=== PATIENT | female | born 1970 | race Caucasian/White ===

== ENCOUNTER 2020-12-17 12:29 | Day surgery (SDC) | payer BC ==
[2020-12-17] MEDS ORDERED: Hyoscyamine 0.125 MG Tab.SL SL ONE ×3 (13:07→14:42)
--- NOTE | 2020-12-17 13:07 | EDM.PDOC ---
ED HPI GENERAL MEDICAL PROBLEM - General Chief Complaint: ENT Problem Stated Complaint: DIFFICULTY SWALLOWING Time Seen by Provider: 12/17/20 12:50 Source of Information: Reports: Patient History Limitations: Reports: No Limitations - History of Present Illness INITIAL COMMENTS - FREE TEXT/NARRATIVE: 50-year-old female presents to the ED essentially unable to swallow. She repo rts since about 8:00 last evening after taking a first sip of beer it came back up with intense spasm of her upper esophagus with a bit of air. She reports she had a milder case that lasted 5 to 10 minutes on Saturday last week. She otherwise has had similar type problems perhaps 2 years ago. She does not believe that any pill got stuck in her esophagus to cause pill esophagitis. She has been spitting up her saliva ever since last evening. She is seen at the walk-in clinic by Kesha Perez and had a work-up including a CT of the neck with soft tissue evaluation with no positive findings. In the ED patient continues to spit up saliva every 5 minutes. She rarely experiences any heartburn or GERD. Current medications she is taking for many years. No recent use of Benadryl to help sleep. No other anticholinergic medications either. She does to sunflower seeds when she works outside and has been using them a lot the last few days. 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 No known exposure to herbicides or pesticides. Onset: Sudden Onset Date: 12/17/20 Onset Time: 20:00 Duration: Hour(s):, Constant (Unable to swallowing her own saliva.) Location: Reports: Neck (Feels pain at the suprasternal notch of her neck with regurgitation of any fluids that she attempts to swallow such as water.) Quality: Reports: Other (Unable to swallow her saliva or any fluid since last evening.) Severity: Severe Improves with: Reports: None Worsens with: Reports: None Context: Denies: Activity, Exercise, Lifting, Sick Contact, Trauma, Other Associated Symptoms: Reports: Other (Regurgitation of saliva. She is actually quite hungry but of course unable to eat.). 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 12/17/20 [Rx] Sucralfate [Carafate] 1 gm PO Q6HR PRN 30 Days #120 tab 12/17/20 [Rx] buPROPion HCL [Wellbutrin Xl] 300 mg PO DAILY 12/17/20 [History] Past Medical History - Past Health History Medical/Surgical History: Denies Medical/Surgical History Psychiatric History: Reports: ADHD, Depression (Currently on Wellbutrin.) - Infectious Disease History Infectious Disease History: Reports: Novel Coronavirus Other Infectious Disease History: Patient did have COVID-19 illness in March last year. She has not been able to smell since that time. Social & Family History - Tobacco Use Tobacco Use Status *Q: Never Tobacco User - Alcohol Use Number of Drinks Per Day: 2 - Recreational Drug Use Recreational Drug Use: No - Living Situation & Occupation Occupation: Employed ED ROS ENT - Review of Systems Review Of Systems: See Below Constitutional: Reports: Fatigue (Not being able to sleep most of the night due to spitting up/saliva.). Denies: Fever, Chills, Malaise, Weakness HEENT: Reports: Other (Unable to swallow her own saliva since last evening.) Respiratory: Reports: No Symptoms Cardiovascular: Reports: No Symptoms Endocrine: Reports: No Symptoms GI/Abdominal: Reports: No Symptoms : Reports: No Symptoms Musculoskeletal: Reports: No Symptoms Skin: Reports: No Symptoms Neurological: Reports: No Symptoms Psychiatric: Reports: Depression (History of attention deficit disorder with hyperactivity.), Other Hematologic/Lymphatic: Reports: No Symptoms Immunologic: Reports: No Symptoms ED EXAM, ENT - Physical Exam Exam: See Below Exam Limited By: No Limitations General Appearance: Alert, WD/WN, Mild Distress, Other (Continues to spit up her own saliva into a water bottle every 3 to 5 minutes. Temperature is 36.7. Heart rate 78 in sinus respiratory to 16 with O2 sats of 99% room air BP mildly elevated 167/69.) Eye Exam: Bilateral Eye: Normal Inspection (No blepharal pallor or scleral icterus.) Mouth/Throat: Normal Inspection, Normal Gums, Normal Lips, Normal Teeth, Other Head: Atraumatic (Tonsils are absent.), Normocephalic Neck: Normal Inspection, Supple, Non-Tender, Full Range of Motion. No: Lymphadenopathy (L), Lymphadenopathy (R) Respiratory/Chest: No Respiratory Distress, Lungs Clear, Normal Breath Sounds, No Accessory Muscle Use Cardiovascular: Normal Peripheral Pulses, Regular Rate, Rhythm, No Edema, No Gallop, No Murmur, No Rub GI/Abdominal: Normal Bowel Sounds, Soft, Non-Tender, No Organomegaly, No Mass, Pelvis Stable. No: Guarding, Rigid, Rebound Back: Normal Inspection, Full Range of Motion. No: CVA Tenderness (L), CVA Tenderness (R) Extremities: Normal Inspection, Normal Range of Motion, Non-Tender, No Pedal Edema Neurological: Alert, Oriented, CN II-XII Intact, Normal Cognition Psychiatric: Normal Affect, Normal Mood Skin: Warm, Dry, Intact, Normal Color, No Rash, Other (Or face and white mess around both eyes as she wears safety goggles for work.) Course - Vital Signs Last Recorded V/S: Last Vital Signs Temp 37.0 C 12/17/20 17:45 Pulse 60 12/17/20 17:45 Resp 13 12/17/20 17:45 BP 147/80 H 12/17/20 17:45 Pulse Ox 96 12/17/20 17:45 - Orders/Labs/Meds Orders: Active Orders 24 hr Category Date Time Status Patient Status [ADT] Routine ADT 12/17/20 15:17 Active Schedule Procedure [COMM] Stat Oth 12/17/20 15:18 Ordered Labs: Laboratory Tests 12/17/20 Range/Units 13:02 SARS-CoV-2 RNA (CURTIS) Negative (NEGATIVE) Meds: Medications Discontinued Medications Generic Name Dose Route Start Last Admin Trade Name Freq PRN Reason Stop Dose Admin Dexamethasone Confirm 12/17/20 15:44 Dexamethasone 4 Mg/Ml Sdv Administered 12/17/20 15:45 Dose 8 mg .ROUTE .STK-MED ONE Diphenhydramine HCl 25 mg 12/17/20 16:19 Diphenhydramine 50 Mg/Ml Sdv IVPUSH Q6H PRN pruritis Fentanyl Confirm 12/17/20 15:45 Fentanyl 100 Mcg/2 Ml Sdv Administered 12/17/20 15:46 Dose 100 mcg .ROUTE .STK-MED ONE Fentanyl 50 mcg 12/17/20 16:19 Fentanyl 100 Mcg/2 Ml Sdv IVPUSH Q20M PRN Pain Glucagon 1 mg 12/17/20 13:11 12/17/20 13:18 Glucagon,Human Recombinant 1 Mg Vial IVPUSH 12/17/20 13:12 1 mg ONETIME ONE Administration Glycopyrrolate Confirm 12/17/20 16:07 Glycopyrrolate 0.2 Mg/Ml 2 Ml Syringe Administered 12/17/20 16:08 Dose 0.4 mg .ROUTE .STK-MED ONE Hydromorphone HCl 0.5 mg 12/17/20 13:10 12/17/20 13:17 Hydromorphone 0.5 Mg/0.5 Ml Syringe IVPUSH 12/17/20 13:11 0.5 mg ONETIME ONE Administration Hydromorphone HCl 0.5 mg 12/17/20 16:19 Hydromorphone 0.5 Mg/0.5 Ml Syringe IVPUSH Q10M PRN Pain (severe 7-10) Hyoscyamine 0.125 mg 12/17/20 13:07 12/17/20 13:14 Hyoscyamine 0.[address] 12/17/20 13:08 0.125 mg ONETIME ONE Administration Hyoscyamine 0.125 mg 12/17/20 13:48 12/17/20 13:51 Hyoscyamine 0.[address] 12/17/20 13:49 0.125 mg ONETIME ONE Administration Hyoscyamine 0.125 mg 12/17/20 14:42 12/17/20 14:47 Hyoscyamine 0.[address] 12/17/20 14:43 0.125 mg ONETIME ONE Administration Dextrose/Lactated Ringer's 1,000 mls @ 150 mls/hr 12/17/20 13:15 12/17/20 13:14 Dextrose 5%-Lactated Ringers IV 150 mls/hr ASDIRECTED MOIZ Administration Lidocaine HCl Confirm 12/17/20 15:44 Xylocaine-Mpf 1% Administered 12/17/20 15:45 Dose 4 mls @ as directed .ROUTE .STK-MED ONE Lactated Ringer's Confirm 12/17/20 15:44 Ringers, Lactated Administered 12/17/20 15:45 Dose 1,000 mls @ as directed .ROUTE .STK-MED ONE Metoclopramide HCl 5 mg 12/17/20 13:11 12/17/20 13:26 Metoclopramide 10 Mg/2 Ml Sdv IVPUSH 12/17/20 13:12 5 mg ONETIME ONE Administration Ondansetron HCl Confirm 12/17/20 15:44 Ondansetron 4 Mg/2 Ml Sdv Administered 12/17/20 15:45 Dose 4 mg .ROUTE .STK-MED ONE Ondansetron HCl 4 mg 12/17/20 16:19 Ondansetron 4 Mg/2 Ml Sdv IVPUSH ONETIME PRN Nausea/Vomiting Propofol Confirm 12/17/20 15:45 Propofol 200 Mg/20 Ml Sdv Administered 12/17/20 15:46 Dose 200 mg .ROUTE .STK-MED ONE Verapamil HCl 2.5 mg 12/17/20 14:38 12/17/20 14:46 Verapamil 5 Mg/2 Ml Sdv IVPUSH 12/17/20 14:39 2.5 mg ONETIME ONE Administration - Radiology Interpretation Free Text/Narrative:: 50-year-old female presents to the ED with inability to swallow starting about 2000 hrs. last evening. She reports she ate and drink normally all day yesterday but after work went to have a sip of beer when it suddenly caused spasm over upper esophagus with regurgitation of the beer and a bolus of air. Since that time she is been unable to swallow even her own saliva. She was seen into the walk-in clinic this morning at [facility] and had a CT scan of the soft tissues of her neck with contrast and it did not reveal any abnormalities. She was given Solu-Medrol 125 mg IV with of course no improvement yet since it is take several hours to work. She reports she had a similar type event occur on Saturday this week lasting 5 to 10 minutes. She has had this problem also in the past may be 2 to 3 years ago. Clinically she is getting esophageal spasm of unclear etiology. I believe she will need an EGD to further explore this area since she is currently not able to swallow her own saliva. I will therefore speak to on-call surgeon Dr. Hillman in this regard. In the interim I will start her back on IV fluids D5 Ringer's lactate at 150 mils per hour. I will give her Levsin 0.125 mg tablet under the tongue now and repeat in 10 minutes to see if it has any effect in relieving esophageal spasm. She will also be given Reglan 5 mg with Dilaudid 0.5 mg IV and plan to give her glucagon 1 mg IV 15 minutes after the Reglan and Dilaudid have been infused. - Re-Assessments/Exams Free Text/Narrative Re-Assessment/Exam: 12/17/20 13:27 I have spoken with and she will see her in the ED after finishing rounds on the [facility] floor. A copy of her CT radiology report is now available. CT of the neck with 80 mils of Omnipaque administered intravenously. Exam is degraded by motion artifact centered at the oropharynx and hypopharynx. Mild edema of the pharyngeal mucosa and palatine tonsils appreciated. No drainable fluid collection. What appears to be airway narrowing at the level of the palatine tonsils is most likely secondary to motion artifact. The soft tissues of the neck are otherwise normal in appearance. Normal appearance of the salivary and thyroid glands. The paranasal sinuses and mastoid air cells are well moderate degenerative changes of the cervical spine appreciated. Normal appearance of the intracranial structures that could be visualized. Lung apices are clear. 12/17/20 14:02 I later found out that the patient is actually had labs performed at the clinic this morning and does have copies with her. Therefore I did cancel her ordered labs. Lab values from [facility] reveal a white count of 6.6 with absolute neutrophils of 4872%. Hemoglobin is 14.9 with hematocrit of 43.2 platelet count is 274,000. Chemistry shows a glucose of 109 a BUN of 11 and a creatinine of 0.9. Sodium 139 with potassium of 4.1 chloride 104 the bicarb of 24. Anion gap is 15. Calcium is 9.6 with a total protein of 7.6 and an albumin fraction of 4.3 alkaline phosphatase is 62. AST was 20 with an ALT of 19 total bilirubin is 0.8. GFR is estimated at 66. 12/17/20 14:43 Patient did tolerate water for short period of time but was not sure was going to come back up. After speaking with the surgeon we are going to try some warm or fluid to see if this would stay down. We will also try dose of verapamil 2.5 mg IV as a smooth muscle relaxing agent as well as repeat Levsin 0.125 mg sublingual. Just as I put the orders in however the patient did regurgitate up the recent warm fluid she had taken in. 12/17/20 15:14 Patient feels that she has partial relief of her upper throat discomfort but is not able to retain fluids i.e. she is still regurgitating. Verapamil 2.5 mg IV as well as repeat Levsin 0.125mg did not help any further. Therefore Dr. Hillman has decided to take her to the OR for EGD. Departure - Departure Time of Disposition: 16:00 Disposition: DC/Tfer to Critical Access 66 Condition: Fair Clinical Impression: Obstruction of esophagus - Discharge Information *PRESCRIPTION DRUG MONITORING PROGRAM REVIEWED*: Not Applicable *COPY OF PRESCRIPTION DRUG MONITORING REPORT IN PATIENT BRISA: Not Applicable Sepsis Event Note (ED) - Evaluation Sepsis Screening Result: No Definite Risk - Focused Exam Vital Signs: Vital Signs Temp Pulse Resp BP Pulse Ox Pulse Ox 12/17/20 17:45 37.0 C 60 13 147/80 H 96 12/17/20 17:30 57 L 13 141/80 H 97 12/17/20 17:15 36.8 C 61 19 135/90 94 L 12/17/20 17:00 79 17 123/88 95 12/17/20 16:50 93 L 12/17/20 16:45 37.1 C 77 14 134/85 98 12/17/20 16:31 36.7 C 91 19 143/97 H 94 L 94 L 12/17/20 15:38 79 18 127/79 99 12/17/20 12:47 36.7 C 78 16 167/69 H 99
[2020-12-17] MEDS ORDERED: HYDROmorphone 0.5 MG/0.5 ML Syringe IVPUSH ONE (13:10)
[2020-12-17] MEDS ORDERED: Glucagon,Human Recombinant 1 MG Vial IVPUSH ONE (13:11)
[2020-12-17] MEDS: Metoclopramide 10 MG/2 ML SDV IVPUSH ONE ×2 (13:15→13:26)
[2020-12-17] MEDS ORDERED: Dextrose 5%-Lactated Ringers 1,000 ML IV SCH (13:15)
[2020-12-17] MEDS ORDERED: Verapamil 5 MG/2 ML SDV IVPUSH ONE (14:38)
--- NOTE | 2020-12-17 14:47 | PCM.HP.2 ---
H&P History of Present Illness - General Date of Service: 12/17/20 Admit Problem/Dx: esophageal spasm Source of Information: Patient, Provider History Limitations: Reports: No Limitations - History of Present Illness Initial Comments - Free Text/Narative: The patient is a 50 y/o lady who presents to the ED after transfer from the local [facility] for complaint of dysphagia and pain in the upper chest. This started yesterday with inability to swallow and nearly projectile vomiting after trying to swallow. This has happened before, but not as severely or long-lasting. She has never had any EGD. She does not take any medication for this. She denies any nausea associated with the vomiting. She had CT scan of the neck and labs without any abnormality. - Related Data Allergies/Adverse Reactions: Allergies Allergy/AdvReac Type Severity Reaction Status Date / Time No Known Allergies Allergy Verified 12/17/20 12:49 Home Medications: Home Meds Amphetamine/Dextroamphetamine [Adderall] 10 mg PO DAILY 12/17/20 [History] buPROPion HCL [Wellbutrin Xl] 300 mg PO DAILY 12/17/20 [History] Past Medical History - Past Health History Medical/Surgical History: Denies Medical/Surgical History Psychiatric History: Reports: ADHD, Depression (Currently on Wellbutrin.) - Infectious Disease History Infectious Disease History: Reports: Novel Coronavirus Other Infectious Disease History: Patient did have COVID-19 illness in March last year. She has not been able to smell since that time. Social & Family History - Family History Cardiac: Reports: Hypertension - Tobacco Use Tobacco Use Status *Q: Never Tobacco User - Alcohol Use Number of Drinks Per Day: 2 - Recreational Drug Use Recreational Drug Use: No - Living Situation & Occupation Occupation: Employed [employer] Review of Systems - Review of Systems: Review Of Systems: See Below General: Reports: No Symptoms HEENT: Reports: No Symptoms Pulmonary: Reports: No Symptoms Cardiovascular: Reports: No Symptoms Gastrointestinal: Reports: Vomiting, Other (dysphagia) Genitourinary: Reports: No Symptoms Musculoskeletal: Reports: No Symptoms Skin: Reports: No Symptoms Neurological: Reports: No Symptoms Hematologic/Lymphatic: Reports: No Symptoms Exam - Exam Exam: See Below - Vital Signs Vital Signs: Last Vital Signs Temp 36.7 C 12/17/20 12:47 Pulse 78 12/17/20 12:47 Resp 16 12/17/20 12:47 BP 167/69 H 12/17/20 12:47 Pulse Ox 99 12/17/20 12:47 Weight: 61.689 kg - Exam Quality Assessment: No: Supplemental Oxygen General: Alert, Oriented HEENT: Conjunctiva Clear, EOMI Neck: Supple Lungs: Clear to Auscultation, Normal Respiratory Effort Cardiovascular: Regular Rate, Regular Rhythm GI/Abdominal Exam: Normal Bowel Sounds, Soft, Non-Tender, No Distention Extremities: No Pedal Edema Peripheral Pulses: 2+: Dorsalis Pedis (L), Dorsalis Pedis (R) Skin: Warm, Dry, Intact Neurological: Cranial Nerves Intact Neuro Extensive - Mental Status: Normal Mood/Affect - Patient Data Lab Results Last 24 hrs: Laboratory Results - last 24 hr 12/17/20 Range/Units 13:02 SARS-CoV-2 RNA (CURTIS) Negative (NEGATIVE) Sepsis Event Note - Evaluation Sepsis Screening Result: No Definite Risk - Focused Exam Vital Signs: Vital Signs Temp Pulse Resp BP Pulse Ox 12/17/20 12:47 36.7 C 78 16 167/69 H 99 *Q Meaningful Use (ADM) - VTE Risk Assess *Q Each Risk Factor Represents 1 Point: Age 41 - 59 years Total Score 1 Point Risk Factors: 1 - Problem List (1) Dysphagia SNOMED Code(s): 59894920, 171021778 ICD Code: R13.10 - DYSPHAGIA, UNSPECIFIED Status: Acute Current Visit: Yes (2) Esophageal spasm SNOMED Code(s): 352027642 ICD Code: K22.4 - DYSKINESIA OF ESOPHAGUS Status: Acute Current Visit: Yes Problem List Initiated/Reviewed/Updated: Yes Orders Last 24hrs: Active Orders 24 hr Category Date Time Status Dextrose 5%-Lactated Ringers 1,000 ml Med 12/17/20 13:15 Active IV ASDIRECTED Medication Orders Dextrose/Lactated Ringer's (Dextrose 5%-Lactated Ringers) 1,000 mls @ 150 mls/hr IV ASDIRECTED MOIZ Last Admin: 12/17/20 13:14 Dose: 150 mls/hr Documented by: JOSIAH Assessment/Plan Comment:: 50 y/o lady with dysphagia, clinically consistent with esophageal spasm - improved with hyoscyamine, glucagon and reglan. Still having some symptoms. Will try some nifedipine - Will trial liquids as tolerated - Discussed EGD with possible balloon dilation if needed. Discussed risk of poss ible perforation and bleeding. She was agreeable if this is needed. - IVF rehydration Pt will need outpatient EGD and colonoscopy, and will plan for clinic follow up. Recommend discharge home with hyoscyamine for symptoms as needed Khushbu Boyd MD General surgery - Mortality Measure Prognosis:: Good
--- NOTE | 2020-12-17 15:33 | PCM.PREANE ---
Preanesthetic Assessment - Procedure Proposed Procedure: EGD with possible dilation - Anesthesia/Transfusion/Family Hx Anesthesia History: Prior Anesthesia Without Reaction Family History of Anesthesia Reaction: No Transfusion History: No Prior Transfusion(s) Intubation History: Unknown - Review of Systems General: No Symptoms Pulmonary: No Symptoms (asthma/exercise induced/last ued inhaler two weeks ago./ETOH: 2 beers per day ) Cardiovascular: No Symptoms Gastrointestinal: No Symptoms (occasional GERD), Difficulty Swallowing Neurological: No Symptoms Other: Reports: None (ADD), Depression - Physical Assessment NPO Status Date: 12/17/20 NPO Status Time: 14:43 Vital Signs: Last Vital Signs Temp 36.7 C 12/17/20 12:47 Pulse 78 12/17/20 12:47 Resp 16 12/17/20 12:47 BP 167/69 H 12/17/20 12:47 Pulse Ox 99 12/17/20 12:47 Height: 1.68 m Weight: 61.689 kg ASA Class: 2E Mental Status: Alert & Oriented x3 Airway Class: Mallampati = 2 Dentition: Reports: Normal Dentition, Caries Thyro-Mental Finger Breadths: 3 Mouth Opening Finger Breadths: 3 ROM/Head Extension: Full Lungs: Clear to Auscultation, Normal Respiratory Effort Cardiovascular: Regular Rate, Regular Rhythm, No Murmurs - Lab Values: Laboratory Last Values SARS-CoV-2 RNA (CURTIS) Negative (NEGATIVE) 12/17/20 13:02 All labs reviewed and noted and within acceptable range to proceed with procedure. - Allergies Allergies/Adverse Reactions: Allergies Allergy/AdvReac Type Severity Reaction Status Date / Time No Known Allergies Allergy Verified 12/17/20 12:49 - Anesthesia Plan Pre-Op Medication Ordered: None - Acknowledgements Anesthesia Type Planned: General Anesthesia Pt an Appropriate Candidate for the Planned Anesthesia: Yes Alternatives and Risks of Anesthesia Discussed w Pt/Guardian: Yes Pt/Guardian Understands and Agrees with Anesthesia Plan: Yes PreAnesthesia Questionnaire - Past Health History Medical/Surgical History: Denies Medical/Surgical History Psychiatric History: Reports: ADHD, Depression (Currently on Wellbutrin.) - Infectious Disease History Infectious Disease History: Reports: Novel Coronavirus Other Infectious Disease History: Patient did have COVID-19 illness in March last year. She has not been able to smell since that time. - SUBSTANCE USE Tobacco Use Status *Q: Never Tobacco User Number of Drinks Per Day: 2 Recreational Drug Use History: No - HOME MEDS Home Medications: Home Meds Amphetamine/Dextroamphetamine [Adderall] 10 mg PO DAILY 12/17/20 [History] buPROPion HCL [Wellbutrin Xl] 300 mg PO DAILY 12/17/20 [History] - CURRENT (IN HOUSE) MEDS Current Meds: Current Medications Dextrose/Lactated Ringer's (Dextrose 5%-Lactated Ringers) 1,000 mls @ 150 mls/hr IV ASDIRECTED MOIZ Last Admin: 12/17/20 13:14 Dose: 150 mls/hr Documented by: Discontinued Medications Glucagon (Glucagon,Human Recombinant 1 Mg Vial) 1 mg IVPUSH ONETIME ONE Stop: 12/17/20 13:12 Last Admin: 12/17/20 13:18 Dose: 1 mg Documented by: Hydromorphone HCl (Hydromorphone 0.5 Mg/0.5 Ml Syringe) 0.5 mg IVPUSH ONETIME ONE Stop: 12/17/20 13:11 Last Admin: 12/17/20 13:17 Dose: 0.5 mg Documented by: Hyoscyamine (Hyoscyamine 0.125 Mg Tab.Sl) 0.125 mg SL ONETIME ONE Stop: 12/17/20 13:08 Last Admin: 12/17/20 13:14 Dose: 0.125 mg Documented by: Hyoscyamine (Hyoscyamine 0.125 Mg Tab.Sl) 0.125 mg SL ONETIME ONE Stop: 12/17/20 13:49 Last Admin: 12/17/20 13:51 Dose: 0.125 mg Documented by: Hyoscyamine (Hyoscyamine 0.125 Mg Tab.Sl) 0.125 mg SL ONETIME ONE Stop: 12/17/20 14:43 Last Admin: 12/17/20 14:47 Dose: 0.125 mg Documented by: Metoclopramide HCl (Metoclopramide 10 Mg/2 Ml Sdv) 5 mg IVPUSH ONETIME ONE Stop: 12/17/20 13:12 Last Admin: 12/17/20 13:26 Dose: 5 mg Documented by: Verapamil HCl (Verapamil 5 Mg/2 Ml Sdv) 2.5 mg IVPUSH ONETIME ONE Stop: 12/17/20 14:39 Last Admin: 12/17/20 14:46 Dose: 2.5 mg Documented by:
[2020-12-17] MEDS ORDERED: Dexamethasone 4 MG/ML SDV ONE (15:44)
[2020-12-17] MEDS ORDERED: Lidocaine 1% 4 ML ONE (15:44)
[2020-12-17] MEDS ORDERED: Succinylcholine/Sod PF 100 MG/5 ML SYRINGE IV ONE (15:44)
[2020-12-17] MEDS ORDERED: Ondansetron 4 MG/2 ML SDV ONE (15:44)
[2020-12-17] MEDS ORDERED: Lactated Ringers 1,000 ML ONE (15:44)
[2020-12-17] MEDS ORDERED: fentaNYL 100 MCG/2 ML SDV ONE (15:45)
[2020-12-17] MEDS ORDERED: Propofol 200 MG/20 ML SDV ONE (15:45)
[2020-12-17] MEDS ORDERED: HYDROmorphone 0.5 MG/0.5 ML Syringe IVPUSH PRN (16:19)
[2020-12-17] MEDS ORDERED: Ondansetron 4 MG/2 ML SDV IVPUSH PRN (16:19)
[2020-12-17] MEDS ORDERED: diphenhydrAMINE 50 MG/ML SDV IVPUSH PRN (16:19)
[2020-12-17] MEDS ORDERED: fentaNYL 100 MCG/2 ML SDV IVPUSH PRN (16:19)
--- NOTE | 2020-12-17 16:33 | PCM.OPNOTE ---
- General Post-Op/Procedure Note Date of Surgery/Procedure: 12/17/20 Operative Procedure(s): Esophageal Findings: 1. Esophageal food bolus 2. Grade D Esophagitis at GE junction 3. Gastritis 4. Duodenitis Pre Op Diagnosis: Dysphagia Post-Op Diagnosis: Esophageal food bolus Anesthesia Technique: General ET Tube Primary Surgeon: Khushbu Boyd Anesthesia Provider: [place] Ann Pathology: 1. Duodenal biopsies 2. Gastric antrum biopsies 3. GE junction biopsies Fluid Replacement, Intraop: 600 Output, Urine Amount: 0 EBL in mLs: 5 Complications: none apparent Condition: Good
--- NOTE | 2020-12-17 16:34 | PCM.PRNOTE ---
- Free Text/Narrative Note: Operative Report Date of procedure: December 17, 2020 Preoperative diagnosis: dysphagia Postoperative diagnosis: Esophageal food bolus obstruction Surgeon: Khushbu Boyd M.D. Procedure: EGD Anesthesia: General ET Braid Folder: [place] Ann CRNA IV fluids: 600 mL Estimated blood loss: 0 mL Findings: 1. Esophageal food bolus 2. Grade D Esophagitis at GE junction 3. Gastritis 4. Duodenitis Specimens: 1. Duodenal biopsies 2. Gastric antrum biopsies 3. GE junction biopsies Indication: The patient is a 50 -year-old lady who presented with dysphagia. The patient's main complaint was pain in the upper chest and inability to swallow any fluid or secretions. The patient was consented for an EGD with possible balloon dilation. Risk of bleeding and perforation were discussed. The patient's consent was obtained Description of the procedure: The patient was taken to the endoscopy suite and placed on hemodynamic monitoring. The nurse toll bridge operator induced general anesthesia and was intubated without difficulty. A bite block was placed. The patient was positioned in the left lateral decubitus position. A timeout was performed. The endoscope was gently placed into the mouth to the back of the pharynx and introduced into the esophagus. The scope was gently advanced under direct visualization down to the level of the lower esophagus where a food bolus was encountered. This was gently pushed into the stomach. The stomach was then entered. Normal rugal folds were noted. The scope was advanced into the antrum. We noted adherent blood in the distal stomach and erythema consistent with gastritis. The pylorus was then entered and the first and second portion of the duodenum was inspected. We did note some erythema and friability consistent with duodenitis, and biopsies were taken with a cold biopsy forceps. There were no ulcerations in the duodenum. The scope was withdrawn into the antrum and biopsies taken with a cold biopsy forceps for histology and H pylori testing. The scope was then retroflexed in the cardia and fundus were investigated. There is no evidence of any hiatal hernia. No other abnormalities were noted. The scope was then withdrawn while inspecting the esophagus. There was circumferential esophagitis type tissue changes at the GE junction, and this was biopsied with a cold biopsy forceps in four quadrants. The scope was then fully withdrawn and the procedure was terminated. The patient tolerated the procedure well without any evidence of complications. Khushbu Boyd MD General Surgery
--- NOTE | 2020-12-17 16:45 | PCM.POSTAN ---
POST ANESTHESIA ASSESSMENT - MENTAL STATUS Mental Status: Alert - VITAL SIGNS Vital Signs: Last Vital Signs Temp 98.1 12/17/20 1631 Pulse 91 12/17/20 1631 Resp 19 12/17/20 1631 BP 143/97 12/17/20 1631 Pulse Ox 94 12/17/20 1631 - RESPIRATORY Respiratory Status: Respiratory Rate WNL, Airway Patent, O2 Saturation Stable, Supplemental Oxygen - CARDIOVASCULAR CV Status: Pulse Rate WNL, Blood Pressure Stable - GASTROINTESTINAL GI Status: No Symptoms - POST OP HYDRATION Hydration Status: Adequate & Stable
--- NOTE | 2020-12-17 16:46 | PCM48HPAN ---
Post Anesthesia Note - EVALUATION WITHIN 48HRS OF ANESTHETIC Vital Signs in Normal Range: Yes Patient Participated in Evaluation: Yes Respiratory Function Stable: Yes Airway Patent: Yes Cardiovascular Function Stable: Yes Hydration Status Stable: Yes Pain Control Satisfactory: Yes Nausea and Vomiting Control Satisfactory: Yes Mental Status Recovered: Yes Vital Signs: Last Vital Signs Temp 36.7 C 12/17/20 12:47 Pulse 79 12/17/20 15:38 Resp 18 12/17/20 15:38 BP 127/79 12/17/20 15:38 Pulse Ox 99 12/17/20 15:38
== END 2020-12-17 18:12 | disposition home or self-care (01) ==
LOC: JD.ED 12:29 → JD.SDS 15:17
PROVIDERS: ATTEND Surgery
DX: I78.1 Nevus, non-neoplastic (principal); T18.128A Food in esophagus causing other injury, initial encounter; K29.90 Gastroduodenitis, unspecified, without bleeding; K20.90 Esophagitis, unspecified without bleeding; K22.2 Esophageal obstruction; K31.89 Other diseases of stomach and duodenum; Z79.899 Other long term (current) drug therapy; Z01.812 Encounter for preprocedural laboratory examination; Z20.822 Contact with and (suspected) exposure to COVID-19
CPT/HCPCS: 43239; 87635; 96374; 96375; 99284; A9270; J0330; J1100; J1170; J1610; J2704; J2765; J7120; J7121; 00731; 99285; J2405; J3010; J3490; U0002